=== PATIENT | male | born 1960 | race Caucasian/White ===

== ENCOUNTER 2017-06-14 12:08 | Emergency (ER) | payer OTHER ==
[~2017-06-14] VITALS: Ht 177.8 cm; Wt 79.4 kg
[~2017-06-14 12:08] MED LIST: CEPH500 PO; DIPATR PO; HYDACE5 PO; MULVITMIND PO; SULTRIDS PO; [UNRECOGNIZED DRUG - OTHER]
[2017-06-14] MEDS ORDERED: FLUO10 PO (12:16)
[2017-06-14] MEDS ORDERED: METO50ER PO (12:16)
[2017-06-14] MEDS ORDERED: Pravastatin Sod40 MG PO (12:16)
[2017-06-14] MEDS ORDERED: Omeprazole20 M1 (12:16)
[2017-06-14] MEDS ORDERED: Augmentin 875-1 EACH PO (12:32)
== END 2017-06-14 12:55 | disposition home or self-care (01) ==
LOC: ER 12:08
DX: L03.114 Cellulitis of left upper limb (principal); Z79.899 Other long term (current) drug therapy; Z79.2 Long term (current) use of antibiotics; F17.200 Nicotine dependence, unspecified, uncomplicated
CPT/HCPCS: 90471; 90714; 99283

== ENCOUNTER 2019-03-08 14:57 | Emergency (ER) | payer OTHER ==
[~2019-03-08] VITALS: Ht 177.8 cm; Wt 79.4 kg
[~2019-03-08 14:57] MED LIST changes: +Augmentin 875-1 EACH PO; +FLUO10 PO; +METO50ER PO; +Omeprazole20 M1; +Pravastatin Sod40 MG PO
[2019-03-08] MEDS ORDERED: Norco 5-325 Ta1 EACH PO (16:41)
[2019-03-08] MEDS ORDERED: Augmentin 875-1 EACH PO (16:41)
== END 2019-03-08 16:53 | disposition home or self-care (01) ==
LOC: ER 14:57
DX: S91.351A Open bite, right foot, initial encounter (principal); F17.200 Nicotine dependence, unspecified, uncomplicated; Z23 Encounter for immunization; Z79.899 Other long term (current) drug therapy; W54.0XXA Bitten by dog, initial encounter
CPT/HCPCS: 12002; 73620; 90471; 90714; 99283-25

== ENCOUNTER 2019-05-06 10:07 | Emergency (ER) | payer OTHER ==
[~2019-05-06] VITALS: Ht 177.8 cm; Wt 81.7 kg
[~2019-05-06 10:07] MED LIST changes: +Norco 5-325 Ta1 EACH PO
[2019-05-06] MEDS ORDERED: Augmentin 875-1 EACH PO (11:42)
== END 2019-05-06 11:48 | disposition home or self-care (01) ==
LOC: ER 10:07
DX: S60.811A Abrasion of right wrist, initial encounter (principal); S60.511A Abrasion of right hand, initial encounter; L03.113 Cellulitis of right upper limb; I10 Essential (primary) hypertension; E78.5 Hyperlipidemia, unspecified; F17.200 Nicotine dependence, unspecified, uncomplicated; Z79.899 Other long term (current) drug therapy; W55.03XA Scratched by cat, initial encounter
CPT/HCPCS: 73110; 99283-25

== ENCOUNTER 2021-05-19 13:45 | Emergency (ER) | payer OTHER ==
[~2021-05-19] VITALS: Ht 177.8 cm; Wt 81.7 kg
[2021-05-19] MEDS ORDERED: SEA OMEGA PO (14:52)
[2021-05-19] MEDS ORDERED: Prozac20 MG PO (14:52)
[2021-05-19] MEDS ORDERED: LOSARTAN-HCTZ1 EACH PO (14:52)
[2021-05-19] MEDS ORDERED: ATORVASTATIN CA20 MG PO (14:53)
[2021-05-19] MEDS ORDERED: NEOPOLHCSU LEFTEAR ×2 (15:28→15:32)
== END 2021-05-19 15:33 | disposition home or self-care (01) ==
LOC: ER 13:45
DX: H60.92 Unspecified otitis externa, left ear (principal); I10 Essential (primary) hypertension; E78.5 Hyperlipidemia, unspecified; Z79.899 Other long term (current) drug therapy
CPT/HCPCS: 69209; 99282-25; A9270

== ENCOUNTER 2024-03-14 15:22 | Emergency (ER) | payer OTHER ==
[~2024-03-14] VITALS: Ht 177.8 cm; Wt 36.3 kg
[~2024-03-14 15:22] MED LIST changes: +ATORVASTATIN CA20 MG PO; +LOSARTAN-HCTZ1 EACH PO; +NEOPOLHCSU LEFTEAR; +Prozac20 MG PO; +SEA OMEGA PO
[2024-03-14 15:54] VITALS: BP 130/85
[2024-03-14 17:01] LABS: Source, Urine Clean Catch
[2024-03-14 17:16] LABS: Appearance, Urine Hazy (Clear); Bilirubin, Urine Neg (Neg); Blood, Urine 5+ (Neg); Color, Urine Yellow (P-Yellow); Glucose Qualitative, Urine Neg (Neg); Ketones, Urine Neg (Neg); Leukocyte Esterase, Urine Neg (Neg); Nitrite, Urine Neg (Neg); Protein, Urine 1+ (Neg); Urobilinogen, Urine NORM (Normal)
[2024-03-14 17:25] LABS: Bacteria Few /hpf; Red Blood Cells, Urine 25-50 /hpf (0-2); Squamous Epithelial Cells Rare /hpf (Few); White Blood Cells, Urine 0-2 /hpf (0-5)
[2024-03-14 18:43] LABS: Chlamydia Trachomatis Urine NOT DETECTED (NOT DETECT); Neisseria Gonorrhoea Urine NOT DETECTED (NOT DETECT)
== END 2024-03-14 19:40 | disposition home or self-care (01) ==
LOC: ER 15:22
PROVIDERS: Physician Assistant
DX: R35.0 Frequency of micturition (principal); I45.6 Pre-excitation syndrome; I10 Essential (primary) hypertension; E78.5 Hyperlipidemia, unspecified; F17.200 Nicotine dependence, unspecified, uncomplicated; Z79.899 Other long term (current) drug therapy
CPT/HCPCS: 81001; 87491; 87591; 99283

== ENCOUNTER → 2024-03-15 | Outpatient (CLI) | payer OTHER | LOC: LAB SHORT 12:48 → LAB 12:48 | DX: R31.0 Gross hematuria (principal) | CPT/HCPCS: 87086 ==